=== PATIENT | female | born 1995 | race Caucasian/White ===

== ENCOUNTER 2017-02-21 18:41 | Emergency (ER) | payer OTHER ==
[~2017-02-21] VITALS: Ht 157.5 cm; Wt 54.4 kg
[~2017-02-21 18:41] MED LIST: CITRATE OF MAG300 ML PO; LUPRON DEPOT45 MG IM; NORCO 5-325 TA1 EACH PO
[2017-02-21] MEDS ORDERED: ONDANSETRON HCL4 M2 PO (19:01)
[2017-02-21] MEDS ORDERED: WELLBUTRIN SR100 MG PO (19:01)
[2017-02-21] MEDS ORDERED: HYDROCODON-ACE1 EA12 PO (19:02)
[2017-02-21] MEDS ORDERED: FOLIC ACID1 MG PO (19:07)
[2017-02-21 20:04] LABS: ABSOLUTE NEUTROPHILS 3.3 thou/uL (1.4-8.2); BASOPHILS 1.3 % (0.0-2.0); EOSINOPHILS 2.2 % (0.0-3.0); HEMATOCRIT 37.8 % (37.0-47.0); HEMOGLOBIN 13.2 gm/dL (12.0-15.0); LYMPHOCYTES 30.3 % (24.0-44.0); MCH 30.7 pg (26.0-34.0); MCHC 34.7 g/dL (28.0-37.0); MCV 88.5 fL (80.0-100.0); MONOCYTES 9.6 % (1.0-8.0); PLATELET COUNT 233 thou/uL (150-400); POLYS 56.6 % (36.0-66.0); RBC 4.28 mil/uL (4.20-5.00); RDW 12.6 % (10.5-14.5); WBC 5.9 thou/uL (4.0-11.0)
[2017-02-21 20:05] LABS: MANUAL DIFF NO
[2017-02-22 00:49] VITALS: BP 117/81
== END 2017-02-21 23:15 | disposition home or self-care (01) ==
LOC: ER 18:41
PROVIDERS: Physician Assistant
DX: R04.0 Epistaxis (principal); J95.831 Postprocedural hemorrhage of a respiratory system organ or structure following other procedure; N80.9 Endometriosis, unspecified; Z88.5 Allergy status to narcotic agent; Y83.9 Surgical procedure, unspecified as the cause of abnormal reaction of the patient, or of later complication, without mention of misadventure at the time of the procedure; Y92.89 Other specified places as the place of occurrence of the external cause